=== PATIENT | male | born 1995 | race Hispanic/Latino ===

== ENCOUNTER 2017-11-29 11:36 | Inpatient (IN) | payer OTHER ==
[2017-11-29 12:34] LABS: HEMATOCRIT 46.6 % (42.0-52.0); MEAN CORPUSCULAR HEMOGLOBIN 29.5 pg (27.0-33.0); MEAN CORPUSCULAR HGB CONC 34.3 g/dl (32.0-36.5); MEAN CORPUSCULAR VOLUME 85.8 fl (80.0-96.0); PLATELET COUNT, AUTOMATED 215 10^3/uL (150-450); RED BLOOD COUNT 5.43 10^6/uL (4.30-6.10); RED CELL DISTRIBUTION WIDTH 12.2 % (11.5-14.5); WHITE BLOOD COUNT 7.1 10^3/uL (4.0-10.0)
[2017-11-29 13:08] LABS: AMPHETAMINES LEVEL URINE NEGATIVE (NEGATIVE); BARBITURATES URINE NEGATIVE (NEGATIVE); BENZODIAZEPINES URINE NEGATIVE (NEGATIVE); CANNABINOIDS URINE NEGATIVE (NEGATIVE); COCAINE METABOLITE URINE NEGATIVE (NEGATIVE); METHADONE URINE NEGATIVE (NEGATIVE); OPIATES URINE NEGATIVE (NEGATIVE); PHENCYCLIDINE URINE NEGATIVE (NEGATIVE)
[2017-11-29 13:19] LABS: ALBUMIN/GLOBULIN RATIO 1.72 (1.00-1.93); ALKALINE PHOSPHATASE 99 U/L (45-117); ALT/SGPT 48 U/L (12-78); ANION GAP 5 MEQ/L (8-16); AST/SGOT 29 U/L (7-37); BILIRUBIN,DIRECT 0.3 MG/DL (0.0-0.2); BILIRUBIN,TOTAL 1.3 MG/DL (0.2-1.0); BLOOD UREA NITROGEN 15 MG/DL (7-18); CALCIUM LEVEL 9.1 MG/DL (8.5-10.1); CARBON DIOXIDE LEVEL 30 MEQ/L (21-32); CHLORIDE LEVEL 106 MEQ/L (98-107); CREATININE FOR GFR 0.97 MG/DL (0.70-1.30); ETHYL ALCOHOL (ETHANOL) 0.003 % (0.000-0.010); GLUCOSE, FASTING 95 MG/DL (70-100); POTASSIUM SERUM 4.5 MEQ/L (3.5-5.1); SALICYLATE LEVEL < 1.7 MG/DL (5.0-30.0); SODIUM LEVEL 141 MEQ/L (136-145); TOTAL PROTEIN 7.9 GM/DL (6.4-8.2)
[2017-11-29 13:20] LABS: ACETAMINOPHEN LEVEL < 2.0 UG/ML (10.0-30.0)
[2017-11-29] MEDS ORDERED: MAALOX 30 ML SUSP *UDC PO (15:15)
[2017-11-29] MEDS ORDERED: MOM 30ML SUSPENSION UDC PO (15:15)
[2017-11-30] MEDS: SERTRALINE HCL 50 MG TAB PO (08:34)
[2017-11-30] MEDS ORDERED: hydrOXYzine 50 MG TAB PO (11:00)
[2017-11-30] MEDS: ACETAMINOPHEN TAB 650MG DOSE (2X325MG) PO ×2 (14:44→21:23)
[2017-11-30] MEDS: traZODone 50 MG TAB PO (21:23)
[2017-12-01] MEDS: SERTRALINE HCL 50 MG TAB PO (09:42)
[2017-12-01] MEDS: ACETAMINOPHEN TAB 650MG DOSE (2X325MG) PO (09:44)
[2017-12-02] MEDS: ACETAMINOPHEN TAB 650MG DOSE (2X325MG) PO ×2 (08:57→21:12)
[2017-12-02] MEDS: SERTRALINE HCL 50 MG TAB PO (08:57)
[2017-12-03] MEDS: SERTRALINE HCL 50 MG TAB PO (08:48)
[2017-12-03] MEDS: OLANZapine 5 MG TAB PO (21:09)
[2017-12-04] MEDS: SERTRALINE HCL 50 MG TAB PO (09:47)
[2017-12-04] MEDS: traZODone 50 MG TAB PO (20:33)
[2017-12-05] MEDS: SERTRALINE HCL 50 MG TAB PO (08:53)
[2017-12-05] MEDS: traZODone 50 MG TAB PO (21:39)
[2017-12-06] MEDS: SERTRALINE HCL 50 MG TAB PO (08:20)
[2017-12-06] MEDS: OLANZapine 5 MG TAB PO (20:33)
[2017-12-07] MEDS: SERTRALINE HCL 50 MG TAB PO (08:47)
== END 2017-12-07 10:15 | disposition home or self-care (01) | DRG 881 ==
LOC: M ED 11:36 → M ED INP 15:03 → M PSY 15:50
DX: F43.21 Adjustment disorder with depressed mood (principal); Z56.5 Uncongenial work environment